=== PATIENT | male | born 1980 | race Caucasian/White ===

== ENCOUNTER 2019-12-05 09:58 | Emergency (ER) | payer OTHER ==
[2019-12-05] MEDS: Lidocaine 1% with EPINEPHrine 1:100,000 20 ML MDV INJECT ONE (10:35)
[2019-12-05] MEDS: Mupirocin Oint 22 GM Tube TOP ONE (11:18)
--- NOTE | 2019-12-05 11:47 | ER ---
REASON FOR EMERGENCY ROOM VISIT: Laceration. HISTORY: This 39-year-old man from [place] was up in the area with some buddies ice fishing while he was in the fish house. He was leaning over the hole in the ice to bring up a fish and when he raised his head he brushed his left eyebrow go against the bolt that was sticking out of the wall of the fish house sustaining a laceration. He did not strike his head hard or lose any consciousness. He denies any other complaints other than the laceration above his left eyebrow. PAST MEDICAL HISTORY: Unremarkable. MEDICATIONS: None. ALLERGIES: NONE. IMMUNIZAITONS: He has had a tetanus booster within the past 10 years. PHYSICAL EXAMINATION: VITAL SIGNS: See EMR. HEENT: Over his left eyebrow, he has a vertical laceration measuring 2.5 cm in length. It has clean edges. There is some oozing from the skin edges. No palpable bony abnormalities. The laceration begins at the level of the eyebrow and continued vertically toward the toward his scalp. FURTHER EMERGENCY ROOM COURSE: Suture repair of this was recommended and he understands the risks and goals and alternatives. The wound was cleaned with Betadine solution, and approximately 4 mL of 1% Xylocaine with epinephrine was used for local anesthesia. The laceration was closed by approximating the skin edges with a running 5-0 monofilament nylon continuous suture. Approximately 8 of these were required. There was excellent approximation and closure of this and once it was completed, the area was cleaned and then an occlusive dressing using Steri-Strips was placed. He was instructed regarding wound care symptoms and signs of infection and to have the sutures removed in 5 to 7 days time when he gets home. All questions were answered. He understands and agrees. CAPRICE/JSOE /[id number]
== END 2019-12-05 11:13 | disposition home or self-care (01) ==
LOC: LB.ED 09:58
DX: S01.112A Laceration without foreign body of left eyelid and periocular area, initial encounter (principal); W22.8XXA Striking against or struck by other objects, initial encounter
CPT/HCPCS: 12011; 99282